=== PATIENT | male | born 1985 | race Two or more races ===

== ENCOUNTER 2017-02-15 09:52 | Outpatient (CLI) | payer OTHER ==
--- NOTE | 2017-02-17 18:45 | Electroencephalogram ---
DATE OF PROCEDURE: 02/15/2017 HISTORY: This is a 31 years old man with a history of paroxysmal events. EEG was requested to assess possible ongoing seizure activity. The patient has sustained a recent cerebral concussion. TECHNIQUE: EEG was done using 18 electrodes placed scalp to scalp, scalp to ear montages according to 10/[employer]. On most wakeful portions of recording, background activity consists of well regulated low to medium voltage, 8 to 10 cycles per second alpha activities with good response to physiological stimulation. Photic stimulation result no significant changes. Hyperventilation was obtained revealing buildup of slow-wave activities. In the drowsy state, there was evidence of disorganization with appearance of bilateral delta and theta slowing in a predominantly frontal central region bilaterally with one occasion of high voltage sharply contoured activity in the right frontal central area with two episodes of phase reversing. There was no clinical evidence of paroxysmal event described. IMPRESSION: Mildly abnormal EEG in presence of bilateral frontal central excessive slowing with single episode of phase reversal, right central area. COMMENT: Wakeful portions of recordings reflect no abnormalities, but in the drowsy state, excessively represented by theta and delta activity in the frontal central area with a single episode of phase reversal in the right central area (C4), which may indicate mild encephalopathy with epileptogenic focus in the right central area. Underlying structural lesion should be considered. This finding may indicate increased risk of seizure activity. Clinical correlation requested. Tello Shepherd M.D. DR: SANDOR JOB#: [id number] CC:
== END 2017-02-15 12:52 | disposition home or self-care (01) ==
LOC: CAR 09:52
DX: G40.909 Epilepsy, unspecified, not intractable, without status epilepticus (principal)
CPT/HCPCS: 95819